=== PATIENT | female | born 1950 | race Caucasian/White ===

== ENCOUNTER 2016-05-19 09:55 | Outpatient (RCR) | payer MEDICARE, OTHER ==
[~2016-05-19 09:55] MED LIST: LSNP20T PO
== END 2016-08-17 | disposition home or self-care (01) ==
LOC: DT 09:55
PROVIDERS: ATTEND Family Medicine
DX: Z53.9 Procedure and treatment not carried out, unspecified reason (principal)

== ENCOUNTER 2016-05-19 10:00 | Outpatient (RCR) | payer MEDICARE, OTHER | END 2016-05-24 | disposition home or self-care (01) | LOC: DT 10:00 | PROVIDERS: ATTEND Family Medicine | DX: E11.65 Type 2 diabetes mellitus with hyperglycemia (principal); E78.2 Mixed hyperlipidemia; Z71.3 Dietary counseling and surveillance | CPT/HCPCS: 97802; 97803 ==